=== PATIENT | female | born 1980 | race Caucasian/White ===

== ENCOUNTER 2017-06-21 02:56 | Inpatient (IN) | payer OTHER ==
[2017-06-21] MEDS ORDERED: PENICILLIN G POTASSIUM 5,000,000 UNIT in DEXTROSE 5% IN WATER 100 ML IVPB STA ×2 (03:30)
[2017-06-21] MEDS ORDERED: METHYLERGONOVINE 0.2 MG/ML 1 ML AMP IM PRN (03:30)
[2017-06-21] MEDS ORDERED: OXYTOCIN 20 UNITS/1000 ML NS 1,000 ML IV SCH (03:30)
[2017-06-21] MEDS ORDERED: OXYTOCIN 10 UNIT/ML 1 ML VIAL IM PRN (03:30)
[2017-06-21] MEDS ORDERED: CARBOPROST TROMETHAMINE 250 MCG/ML 1 ML AMP IM PRN (03:30)
[2017-06-21] MEDS ORDERED: TERBUTALINE 1 MG/ML VIAL SQ PRN (03:30)
[2017-06-21] MEDS ORDERED: LIDOCAINE 1% (PF) 10 MG/ML (30 ML SDV) SQ PRN (03:30)
[2017-06-21] MEDS: LACTATED RINGERS 1,000 ML IV SCH ×2 (03:54→20:23)
[2017-06-21 04:16] LABS: Basophils % (A) 0 %; Eosinophils # (A) 0.1 k/uL (0-0.7); Eosinophils % (A) 1 %; HCT 38.2 % (34.0-46.0); HGB 12.8 gm/dL (11.4-16.0); Lymphocytes % (A) 20 %; MCHC 33.7 g/dL (31.0-37.0); MCV 89.2 fL (80.0-100.0); Mean Platelet Volume 7.6; Monocytes # (A) 0.8 k/uL (0-1.0); Monocytes % (A) 9 %; Neutrophils # (A) 6.5 k/uL (1.3-7.7); Neutrophils % (A) 68 %; Platelet Count 243 k/uL (150-450); RBC 4.28 m/uL (3.80-5.40); RDW 13.1 % (11.5-15.5); WBC 9.7 k/uL (3.8-10.6)
[2017-06-21 05:00] VITALS: BMI 30.1
--- NOTE | 2017-06-21 05:21 | P.HPOB ---
History of Present Illness H&P Date: 06/21/17 36-year-old white female 2 para 1001 9-2/7 weeks' gestation. Patient presented with strong regular uterine contractions, she states her water broke at home at 0150 hours, clear fluid. Fetus is been active throughout the . Past medical history is significant for herpes simplex infections in the past. Current medications Valtrex 500 milligrams daily, vitamin daily. ALLERGIES none known. Social history patient is , she is a nonsmoker, she denies alcohol or drug use. Family history is noncontributory. Past surgical history is negative. Past obstetric history: Blood type is B+, group B strep cultures positive. records not available at time of this dictation. Patient states has been unremarkable. On exam this is a pleasant white female, 5 foot 3 inches, 170 pounds, blood pressure 151/97 admission, vital signs are otherwise stable and patient is afebrile. Subsequent blood pressures are in the 120s to 130s over 70s. General physical exam is within normal limits. Extremities reveal no edema. Cervix on admission was 5 cm dilated, vertex presentation, anterior, 70% effaced. heart tones consistent with reactive NST. Impression: 39-2/7 weeks intrauterine , active spontaneous labor. Advanced maternal age. Positive group B strep cultures. Positive history of HSV, no lesions or prodrome at present. Plan: Penicillin G prophylaxis per hospital protocol. Close maternal and surveillance. Anticipate normal spontaneous vaginal delivery. Review of Systems Constitutional: Reports as per HPI Past Medical History Past Medical History: No Reported History Additional Past Medical History / Comment(s): HSV History of Any Multi-Drug Resistant Organisms: None Reported Past Surgical History: No Surgical Hx Reported Past Anesthesia/Blood Transfusion Reactions: No Reported Reaction Past Psychological History: Anxiety, Depression Additional Psychological History / Comment(s): no meds, has a negative reaction to Zoloft Smoking Status: Former smoker Past Alcohol Use History: None Reported Past Drug Use History: None Reported - Past Family History Brother(s) Additional Family Medical History / Comment(s): brother of Malignant Hyperthermia during surgery at 8 years old Medications and Allergies Home Medications Medication Instructions Recorded Confirmed Type valACYclovir [Valtrex] 500 mg PO DAILY 04/17/15 06/21/17 History Pnv 11/Iron Fum/Folic Acid/Om3 1 each PO DAILY 06/21/17 06/21/17 History [Virt-Pasha Dha Softgel] Allergies Allergy/AdvReac Type Severity Reaction Status Date / Time No Known Allergies Allergy Verified 06/21/17 03:00 Exam - Vital Signs Vital signs: Vital Signs Temp Pulse Resp BP Pulse Ox 06/21/17 03:48 97.9 F 99 16 151/97 100 Intake and Output 06/20/17 06/20/17 06/21/17 14:59 22:59 06:59 Other: Weight 77.111 kg see dictation please Results Result Diagrams: 06/21/17 03:55 Assessment and Plan Plan: Penicillin G per hospital protocol. Close maternal and surveillance. Anticipate normal spontaneous vaginal delivery. Time with Patient: Less than 30
[2017-06-21] MEDS ORDERED: LANOLIN CREAM 5 GM TUBE TOPICAL PRN (05:25)
[2017-06-21] MEDS ORDERED: HYDROCORTISONE 2.5% RECTAL CREAM 30 GM TUBE RECTAL PRN (05:25)
[2017-06-21] MEDS ORDERED: BENZOCAINE/MENTHOL SPRAY 1 GM/SPRAY AEROSOL TOPICAL PRN (05:25)
[2017-06-21] MEDS ORDERED: WITCH HAZEL 1 EACH MED..PAD TOPICAL PRN (05:25)
[2017-06-21] MEDS ORDERED: diphenhydrAMINE 50 MG CAP PO PRN (05:25)
[2017-06-21] MEDS ORDERED: diphenhydrAMINE 25 MG CAP PO PRN (05:25)
[2017-06-21] MEDS ORDERED: ZOLPIDEM 5 MG TAB PO PRN (05:25)
[2017-06-21] MEDS ORDERED: SIMETHICONE 80 MG CHEWABLE PO PRN (05:25)
[2017-06-21] MEDS ORDERED: HYDROcodone/APAP 5-325MG 1 EACH TAB PO PRN (05:25)
[2017-06-21] MEDS ORDERED: diphenhydrAMINE 50 MG/ML 1 ML VIAL IVP PRN ×2 (05:25)
--- NOTE | 2017-06-21 05:25 | P.PROBDLV ---
Vaginal Delivery Note - . Vaginal Delivery Note: This is a 36-year-old white female 2 para 1001 EDC 06/26/2017 at 39-2/7 weeks' gestation. Patient presented with a history of spontaneous amniorrhexis which occurred at home, clear fluid, at 0150 hours. Uterine contractions commenced and were of moderate to strong severity. is remarkable for positive group B strep cultures. She has a history of HSV but no lesions or prodrome currently, on Valtrex daily prophylactically. On admission patient was 5 cm dilated, obviously ruptured, 70% effaced, -2 station. Penicillin G prophylaxis was given 1. She requested and received Stadol 1 mg through the IV. She declined the option for epidural. She progressed through the first stage of labor was judged to be completely dilated at 0454 hours. She began the second stage of labor at that time. Perineal body was prepped and draped in usual sterile fashion. 's head delivered occiput anterior and he restituted accordingly. There was no nuchal cord noted. The right or anterior shoulder was delivered from underneath the pubic symphysis at which time the oropharynx, nasopharynx, and external nares were bulb suctioned on the perineal body. Patient was officially delivered of a liveborn male at 0458 hours. Umbilical cord was doubly clamped and ligated, he was handed to waiting nurses for evaluation where scores of 8 and 9 at one and 5 minutes respectively were given. The placenta delivered spontaneously, it was inspected and noted to be intact with trivascular cord at 0502. At this time the perineal body was redraped. Inspection of the cervix, vagina, perineum, periurethral, and perirectal areas revealed a small first-degree midline perineal laceration at 6:00. This was injected with lidocaine and repaired in the usual fashion using 3-0 Vicryl suture. Excellent reapproximation was noted. Fundus is firm and in the midline, symmetric and 18 week size upon completion of delivery. Estimated blood loss 300 mL's. Infant weight 3915 g or 8 lbs. 10 oz. The patient and her are requesting circumcision further infant son.
[2017-06-21] MEDS ORDERED: BUTORPHANOL 1 MG/ML 1 ML VIAL IV PRN (07:04)
--- NOTE | 2017-06-21 08:02 | P.PN ---
Subjective Progress Note Date: 06/21/17 Principal diagnosis: Increased bleeding Called to reevaluate patient by the nursing staff for increased leading after delivery, and enlarged uterus clinically. Objective - Vital Signs Vital signs: Vital Signs Temp 98.4 F 06/21/17 06:08 Pulse 80 06/21/17 06:38 Resp 16 06/21/17 06:38 BP 146/99 06/21/17 06:38 Pulse Ox 100 06/21/17 03:48 Intake & Output 06/20/17 06/21/17 06/21/17 18:59 06:59 18:59 Weight 77.111 kg Other: # Voids 1 - Constitutional General appearance: Present: average body habitus, cooperative - EENT Eyes: Present: PERRLA ENT: Present: hearing grossly normal - Cardiovascular Rhythm: regular - Genitourinary Genitourinary Comment(s): Uterus enlarged, midline, approximately 2 cm above the umbilicus. Perineal body clean and intact. Examination of the intrauterine cavity reveals a clot of approximately 300 mL of organized blood, this is removed. No other products of conception, blood clot or debris are appreciated. This is tolerated well. Fundus after procedure is 2 cm below the umbilicus, firm, scant bleeding. - Neurologic Neurologic: Present: CNII-XII intact - Musculoskeletal Musculoskeletal: Present: strength equal bilaterally - Psychiatric Psychiatric: Present: A&O x's 3, appropriate affect, intact judgment & insight - Labs CBC & Chem 7: 06/21/17 03:55 Assessment and Plan Plan: Continue attentive care. Methergine has been given, uterus small and firm. Patient is clinically stable at this time. Time with Patient: Less than 30
[2017-06-21] MEDS: PENICILLIN G POTASSIUM 2,500,000 UNIT in DEXTROSE 5% IN WATER 100 ML IVPB SCH ×6 (08:57→20:25)
[2017-06-21] MEDS: SENNOSIDES-DOCUSATE SODIUM 1 EACH TAB PO SCH ×2 (08:58→20:24)
[2017-06-21] MEDS: IBUPROFEN 600 MG TAB PO PRN (15:53)
[2017-06-21] MEDS: ACETAMINOPHEN TAB 325 MG TAB PO PRN (19:47)
[2017-06-22] MEDS: IBUPROFEN 600 MG TAB PO PRN ×2 (00:38→19:37)
[2017-06-22 07:55] LABS: Basophils % (A) 0 %; Eosinophils # (A) 0.1 k/uL (0-0.7); Eosinophils % (A) 1 %; HCT 31.7 % (34.0-46.0); HGB 10.9 gm/dL (11.4-16.0); Lymphocytes # (A) 1.7 k/uL (1.0-4.8); Lymphocytes % (A) 18 %; MCH 30.6 pg (25.0-35.0); MCHC 34.3 g/dL (31.0-37.0); Mean Platelet Volume 7.8; Monocytes # (A) 0.5 k/uL (0-1.0); Monocytes % (A) 5 %; Neutrophils # (A) 7.1 k/uL (1.3-7.7); Neutrophils % (A) 74 %; Platelet Count 190 k/uL (150-450); RBC 3.56 m/uL (3.80-5.40); RDW 13.5 % (11.5-15.5); WBC 9.6 k/uL (3.8-10.6)
[2017-06-22] MEDS: ACETAMINOPHEN TAB 325 MG TAB PO PRN (08:07)
[2017-06-22] MEDS: SENNOSIDES-DOCUSATE SODIUM 1 EACH TAB PO SCH ×2 (08:08→20:42)
--- NOTE | 2017-06-22 08:39 | P.PNOBGVD ---
Subjective - Subjective Patient reports: Reports appetite normal, Reports voiding normally, Reports pain well controlled, Reports ambulating normally : doing well Objective - Latest Vital Signs Latest vital signs: Vital Signs Temp Pulse Resp BP Pulse Ox 06/22/17 00:00 98.2 F 98 16 135/88 98 06/21/17 16:00 97.5 F L 80 16 127/92 06/21/17 12:00 98.5 F 74 16 135/72 06/21/17 09:40 88 16 127/79 06/21/17 08:55 85 16 134/86 - Exam Extremities: Present: normal, edema (Trace to 1+ edema.) Abdomen: Present: normal appearance, soft Uterus: Present: normal, firm (The uterine fundus as tonic and nontender below the umbilicus.) - Labs Labs: Abnormal Lab Results - Last 24 Hours (Table) 06/22/17 Range/Units 07:33 RBC 3.56 L (3.80-5.40) m/uL Hgb 10.9 L (11.4-16.0) gm/dL Hct 31.7 L (34.0-46.0) % Assessment and Plan (1) Normal spontaneous vaginal delivery Current Visit: No Status: Acute Code(s): O80 - ENCOUNTER FOR FULL-TERM UNCOMPLICATED DELIVERY SNOMED Code(s): 01362692 Plan: Continue routine care. The infant is to remain in the hospital for 48 hours of observation secondary to maternal group B strep positivity and lack of 4 hours of antibiotics prior to delivery. I anticipate discharge home tomorrow morning.
--- NOTE | 2017-06-23 08:33 | P.DS ---
Providers Date of admission: 06/21/17 03:24 Expected date of discharge: 06/23/17 Attending physician: Kenneth Gómez Primary care physician: Kenneth Gómez - Discharge Diagnosis(es) (1) Normal spontaneous vaginal delivery Current Visit: No Status: Acute Hospital Course: The patient is a 36-year-old 2 para 1001 admitted at 39-2/7 weeks by good dating parameters. She is admitted with spontaneous rupture of membranes in active labor with all signs reassuring. Her has been uncomplicated though she falls into the category of advanced maternal age and declined testing. She also has a history of a HSV for which she has been prophylaxed in the late third trimester. Lastly she is known to be group B strep positive. On labor and delivery, she made fairly rapid progress to complete and then pushed to a normal spontaneous vaginal delivery of an 8 lbs. 10 oz. baby boy with Apgars of 8 at 1 minute and 9 at 5 minutes. Her course was unremarkable with vital signs being stable and her temperature was afebrile throughout. She did remain in the hospital for 2 days as the was required to remain for 48 hours of observation secondary to insufficient antibiotic prophylaxis for group B strep. She was deemed stable for discharge on day #2 was discharged home to follow-up in the office in 6 weeks' time routinely. Discharge instructions included calling for any significantly increased bleeding or foul-smelling lochia, significantly increased fever abdominal pain, perineal complaints, breast complaints, or anything else that concerned her. She was additionally instructed to have nothing in the vagina for at least 6 weeks time to include intercourse. She understood her instructions and agrees to follow up as noted above. Discharge medications included only [id number] analgesic pain medications as well as continued vitamins as the patient has opted to breast-feed. Maternal blood type is B+ and rubella status is immune. Procedures: #1. Antibody prophylaxis #2. Normal spontaneous vaginal delivery #3. Repair of perineal laceration Patient Condition at Discharge: Good Plan - Discharge Summary New Discharge Prescriptions: No Action valACYclovir [Valtrex] 500 mg PO DAILY Pnv 11/Iron Fum/Folic Acid/Om3 [Virt-Pasha Dha Softgel] 1 each PO DAILY Discharge Medication List valACYclovir [Valtrex] 500 mg PO DAILY 04/17/15 [History] Pnv 11/Iron Fum/Folic Acid/Om3 [Virt-Pasha Dha Softgel] 1 each PO DAILY 06/21/17 [History] Follow up Appointment(s)/Referral(s): Kenneth Gómez MD [Primary Care Provider] - 6 Weeks Discharge Disposition: HOME SELF-CARE
[2017-06-23] MEDS: SENNOSIDES-DOCUSATE SODIUM 1 EACH TAB PO SCH (11:00)
[2017-06-23 12:14] VITALS: BP 126/80; PULSE 94; RESP 18; TEMP 98.4
== END 2017-06-23 11:00 | disposition home or self-care (01) | DRG 774 ==
LOC: FBPOP 02:56 → 4FBP 03:24
PROVIDERS: ADMIT Obstetrics & Gynecology; ATTEND Obstetrics & Gynecology
PROC: 10E0XZZ Delivery of Products of Conception, External Approach (ICD-10-PCS; principal; 2017-06-21)
PROC: 0HQ9XZZ Repair Perineum Skin, External Approach (ICD-10-PCS; principal; 2017-06-21)
DX: O99.824 Streptococcus B carrier state complicating childbirth (principal); O98.32 Other infections with a predominantly sexual mode of transmission complicating childbirth; Z37.0 Single live birth; Z3A.39 39 weeks gestation of pregnancy; A60.04 Herpesviral vulvovaginitis; Z79.899 Other long term (current) drug therapy; O70.0 First degree perineal laceration during delivery; O72.1 Other immediate postpartum hemorrhage; Z87.891 Personal history of nicotine dependence
CPT/HCPCS: 59025; 84112; 85025; 88307; 99213